=== PATIENT | female | born 1960 | race Hispanic/Latino ===

== ENCOUNTER 2024-06-25 05:54 | Day surgery (SDC) | payer OTHER ==
[2024-06-22 09:17] LABS: BASOPHILS # (AUTO) 0.02 K/uL (0.00-0.20); BASOPHILS % (AUTO) 0.4 % (0.0-5.0); EOSINOPHILS # (AUTO) 0.23 K/uL (0.00-0.70); EOSINOPHILS % (AUTO) 4.4 % (0.0-8.0); HEMATOCRIT 44.3 % (36-48); IMMATURE GRANULOCYTE ABSOLUTE 0.01 K/uL (0-1); LYMPHOCYTES # (AUTO) 2.2 K/uL (1.0-4.8); LYMPHOCYTES % (AUTO) 41.1 % (21.0-51.0); MEAN CORPUSCULAR HEMOGLOBIN 30.2 pg (27.0-33.0); MEAN CORPUSCULAR VOLUME 91.7 fL (79-99); MONOCYTES # (AUTO) 0.4 K/uL (0.1-1.0); NEUTROPHILS # (AUTO) 2.4 K/uL (1.8-7.7); NEUTROPHILS % (AUTO) 45.9 % (40.0-77.0); PLATELET COUNT (AUTO) 229 K/uL (130-400); RED BLOOD CELL COUNT(AUTO) 4.83 MIL/uL (4.00-5.50); RED CELL DISTRIBUTION WIDTH 12.6 % (11.0-15.5); WHITE BLOOD COUNT (AUTO) 5.3 K/uL (4.8-10.8)
[2024-06-22 09:25] LABS: CREATININE 0.8 mg/dL (0.5-1.0); POTASSIUM 4.2 mmol/L (3.5-5.1)
[2024-06-22 09:53] VITALS: BP 148/75; PULSE 73; RESP 18; TEMP 98.1
[2024-06-25] VITALS (14 sets, daily range): BP systolic 102–160; BP diastolic 59–89; PULSE 63–80; RESP 15–17; TEMP 96.9–97.6
[~2024-06-25] VITALS: Ht 165.1 cm; Wt 74.6 kg
[~2024-06-25 05:54] MED LIST: ALLEGRA PO; OMEP40CA21 PO
[2024-06-25 06:37] LABS: INR 1.01 (0.85-1.15); PROTHROMBIN TIME 10.9 SEC (9.6-11.6)
[2024-06-25 06:38] LABS: PARTIAL THROMBOPLASTIN TIME 30.7 SEC (26.3-35.5)
[2024-06-25] MEDS ORDERED: LIDOCAINE PF 100MG/5ML (2%) SYRINGE 5ML ONE (07:31)
[2024-06-25] MEDS ORDERED: FENTanyl CITRate PF 50 MCG/1 ML 2ML VIAL ONE (07:31)
[2024-06-25] MEDS ORDERED: proPOFol 10 MG/ML 20ML VIAL IV ONE ×3 (07:31→08:52)
[2024-06-25] MEDS: ceFAZolin SODIUM 2 GM VIAL ONE (07:35)
[2024-06-25] MEDS: LACTATED RINGERS 1000ML 1,000 ML IV ONE (07:35)
[2024-06-25] MEDS ORDERED: MIDAZOLAM HCL 1 MG/ML 2ML VIAL ONE (07:49)
[2024-06-25] MEDS ORDERED: ondanSETRON 4MG INJ ONE (07:59)
[2024-06-25] MEDS ORDERED: dexaMETHasone SOD PHOSPHATE 10MG/ML 1ML VIAL ONE (08:00)
--- NOTE | 2024-06-25 09:35 | OP ---
Operative Note: DATE OF PROCEDURE: 06/25/24 SURGEON: MAHESH ESPARZA MD MARKETING MANAGER: [Vera Lombardo CFA] ANESTHESIA: [General] PREOPERATIVE DIAGNOSIS: [Chronic knee pain, history of partial lateral menisectomy, discoid meniscus] POSTOPERATIVE DIAGNOSIS: [Same plus extensive lateral meniscal tear, unstable meniscus] PROCEDURE: [Left knee diagnostic arthroscopy, partial lateral menisectomy] ESTIMATED BLOOD LOSS: [5 mL] INDICATIONS: [The patient is a 64 years old patient with a history of severe pain to the right knee after having recent surgery in another facility consisting of an arthroscopy. The patient had the preliminary diagnosis of torn discoid meniscus in the lateral compartment and the patient continue having significant amount of pain after the surgery. The patient is brought to the operating room for a diagnostic arthroscopy to determine if there is any other abnormality that was missed during the 1st surgery. Procedure understood, risks, benefits and possible complications and she agreed signed the consent form.] DESCRIPTION OF PROCEDURE: [After adequate general anesthesia was achieved the patient's right lower extremity was prepped and draped in the usual manner previous placement of the tourniquet in the proximal thigh. The extremity was elevated and exsanguinated with an Esmarch band and the tourniquet was inflated to 250 mmHg the Esmarch band been then removed. The leg was brought to the side of the bed with the knee in 90 degrees of flexion and 2 small incisions were made medial and lateral to the patella tendon at the joint line level through the skin scars present, followed by blunt dissection with a trocar penetrating into the joint. Through the lateral portal the arthroscopic cannula was inserted and then after the cannula was removed the scope was inserted in the sheath bringing the knee on the table in extension placing the scope in the suprapatellar area which was noted to be normal with a normal quadriceps tendon and patellofemoral joint. The knee was then brought into flexion on the side of the bed and the scope follow into the medial compartment where after valgus stress was done we were able to visualize the medial compartment and the anterior horn of the meniscus was noted to have adequate characteristics. It was probed and no tears were found in the posterior horn near the body with the anterior horn had a abnormal elevated surface which was shaved to a smooth contour. There was not a tear. We then proceeded to bring the scope to the intercondylar notch noticing that the ACL and PCL were normal we then passed the arthroscope to the lateral compartment with a immediately was noted that the patient had a very prominent anterior horn compatible with a discoid meniscus and then with a [id number] position of the knee we were able to visualize the lateral compartment noticing that the anterior horn was stable and the body and posterior horn of the meniscus had an extensive tear that was very unstable. With the use of the meniscal trimmers and the shaver we proceeded to debride this tear until hook stable tissue was found and then we proceeded to debride the anterior horn of the meniscus to remove most of the discoid configuration present living only portion of the anterior horn of the meniscus. The arthroscope was then removed from the joint as well as the fluid and we then proceeded to close the incisions with #3-0 nylon simple stitches. A soft dressing was applied to cover the small incisions followed by application of an Arnav bandage. The drapes were then removed after the tourniquet was deflated and the patient was transferred to the stretcher and then taken to recovery room for follow-up by anesthesia. There were no complications during the procedure.] MAHESH ESPARZA MD Jun 25, 2024 09:35
[2024-06-25] MEDS: MEPERIDINE-PF 25 MG/ML SYG ONE (09:37)
--- NOTE | 2024-06-25 10:40 | NUR ---
PT ASKING FOR MORE PAIN MEDICATION I DID TELL HER SHE DID RECEIVE DEMEROL AND SEDATION PRIOR TO COMING TO US. I DID TELL HER I WILL ASK FOR SOME MEDICATION PRIOR TO DISCHARGING HER. SHE WAS ASKING FOR MORPHINE ALSO DID TELL ME SHE INJECTS HERSELF WITH TORADOL FROM [place] NEEDED AT HOME AND ASKING WHEN SHE CAN START INJECTING HERSELF. I DID TELL HER I STRONGLY DONT RECOMMEND HER SELF INJECTING HERSELF AT HOME WITH TORADOL D/T POSSIBLE RENAL PROBLEMS. I TOLD HER TO CALL DR. ESPARZA OFFICE IF PAIN WORSENS OR IF SHE HAS ANY CONCERNS.
[2024-06-25] MEDS: ketOROlac 30MG VIAL (30MG/ML) IVP SCH (11:07)
== END 2024-06-25 11:10 | disposition home or self-care (01) ==
LOC: DAH 05:54
PROVIDERS: ATTEND Orthopaedic Surgery
DX: M24.561 Contracture, right knee (principal); M62.559 Muscle wasting and atrophy, not elsewhere classified, unspecified thigh; G89.29 Other chronic pain; M23.252 Derangement of posterior horn of lateral meniscus due to old tear or injury, left knee; M25.561 Pain in right knee; K21.9 Gastro-esophageal reflux disease without esophagitis; Z79.01 Long term (current) use of anticoagulants; Z79.899 Other long term (current) drug therapy; Z90.710 Acquired absence of both cervix and uterus
CPT/HCPCS: 80048; 85025; 36415 ×2; 29881; 85610; 85730; A4663; J7120 ×2; A4649 ×2; J3010; J1100; J2003; J2250; J2704 ×3; J2405; J1885; J2175; J0690; A4930 ×2; A5120; A4215; A4213; A4222; A4221; A4216; A6450; A4223 ×2; A4600; J3490

== ENCOUNTER → 2024-12-15 | Outpatient (CLI) | payer OTHER ==
--- NOTE | 2024-12-15 10:35 | HMCIMG ---
BONE DENSITOMETRY: HISTORY: Age-related osteoporosis without current pathological fracture Comparison: none FINDINGS: Bone mineral density is not measured at the level of the spine given history of prior fracture. BMD measured at the distal left forearm is 0.545 g/cm2 with a T-score of -2.5 This patient is considered osteoporotic according to WHO criteria. Fracture risk is high. BMD measured at Left Femoral Neck is 0.649 g/cm2 with a T-score of -1.9 Bone density is between 10 and 25% below young normal. This patient is considered osteopenic. Fracture risk is moderate. BMD measured at Left Femoral Total is 0.716 g/cm2 with a T-score of -1.8 Bone density is between 10 and 25% below young normal. This patient is considered osteopenic. Fracture risk is moderate. IMPRESSION: Osteoporosis. High risk for atraumatic fractures. Treatment and follow-up recommended.
== END | disposition home or self-care (01) ==
LOC: RAH 08:58
PROVIDERS: ATTEND Internal Medicine
DX: M81.0 Age-related osteoporosis without current pathological fracture (principal); M85.852 Other specified disorders of bone density and structure, left thigh
CPT/HCPCS: 77080